=== PATIENT | male | born 1960 | race Caucasian/White ===

== ENCOUNTER 2019-05-16 11:45 | Day surgery (SDC) | payer BC ==
[~2019-05-16 11:45] MED LIST: Lactated Ringers 1,000 ML IV SCH; Sodium Chloride 0.9% 10 ML Syringe FLUSH PRN
[2019-05-16] MEDS ORDERED: Lactated Ringers 1,000 ML IV ONE (11:46)
[2019-05-16] MEDS ORDERED: fentaNYL 100 MCG/2 ML SDV IV ONE ×2 (11:46)
[2019-05-16] MEDS ORDERED: Ketorolac 30 MG/ML SDV IVPUSH ONE (11:46)
[2019-05-16] MEDS ORDERED: Midazolam 1 MG/ML 2 ML SDV IV ONE (11:46)
[2019-05-16] MEDS ORDERED: Propofol 200 MG/20 ML SDV IV ONE (11:46)
[2019-05-16] MEDS ORDERED: Lidocaine 2% 5 ML SDV INJECT ONE (11:46)
[2019-05-16] MEDS ORDERED: Ondansetron 4 MG/2 ML SDV IVPUSH ONE (11:46)
[2019-05-16] MEDS ORDERED: HYDROmorphone 2 MG/ML SDV IV ONE (11:46)
[2019-05-16] MEDS ORDERED: Dexamethasone 4 MG/ML 5 ML MDV IVPUSH ONE (11:46)
[2019-05-16] MEDS ORDERED: ceFAZolin 2 GM in Premix Bag 1 BAG IV ONE (13:00)
[2019-05-16] MEDS ORDERED: Bupivacaine 0.5% 50 ML MDV INJECT ONE (14:42)
[2019-05-16] MEDS ORDERED: ceFAZolin 1 GM Vial ONE (15:01)
--- NOTE | 2019-05-16 15:37 | PCM.OPNOTE ---
- General Post-Op/Procedure Note Date of Surgery/Procedure: 05/16/19 Operative Procedure(s): R IH with mesh Pre Op Diagnosis: R IH Post-Op Diagnosis: Same Anesthesia Technique: General LMA, Local Primary Surgeon: Charly PAEZ in mLs: 5 Complications: None Condition: Good
--- NOTE | 2019-05-16 16:48 | OR ---
DATE OF OPERATION: 05/16/2019 SURGEON: Charly Boyer MD PREOPERATIVE DIAGNOSIS: Right inguinal hernia. POSTOPERATIVE DIAGNOSIS: Right inguinal hernia. PROCEDURE: Right inguinal hernia repair with mesh. ANESTHESIA: General LMA with local. DESCRIPTION OF PROCEDURE: The patient was brought to the operating room, where a time-out was performed. Surgical site had been initialed by myself and the patient. General anesthesia was administered with laryngeal mask airway. A routine hernia incision was made above the inguinal ligament and extended through the subcutaneous tissue. External fascia was identified and opened in line with the external ring. Cord structures were thickened and edematous consistent with his recent incarceration as seen on his CT scan. The hernia was reduced at this time. I did place a Mary drain around the cord structures. I was unable to identify an ilioinguinal nerve. The thickened indirect hernia sac was dissected off the cord structures. This was large and extended down to the upper scrotum. The hernia sac was opened, and no contents were present. This was twisted and suture ligated at its base with 2-0 Vicryl. A routine hernia repair was then performed using a large precut keyhole polypropylene mesh. This was secured to the pubic tubercle with 0 Prolene. A couple more interrupted sutures were used to secure this to Ilan's ligament inferiorly and a transition stitch made medial to the femoral vein to the shelving edge of Poupart's ligament. The edges of the mesh were brought around laterally and secured with 0 Prolene such that the tip of the small finger would snugly fit into the opening. After the inferior edge was completely secured, the superior edge of the mesh was secured to the muscle with interrupted 0 Prolene. The edges of the mesh were trimmed to length and tucked beneath the external fascia. The wound was thoroughly irrigated with Ancef and saline and return was clear and hemostasis assured. The external fascia was closed with running 3-0 Vicryl. The subcutaneous tissue was reapproximated with 3-0 Vicryl and skin closed with tameka. A sterile dressing was applied. The patient tolerated the procedure well. Testicles were in the scrotum following the surgery. Estimated blood loss was 5 mL. He returned to Postanesthesia in stable condition. /[id number] [place]
== END 2019-05-16 17:10 | disposition home or self-care (01) ==
LOC: FB.SDS 11:45 → FB.MS 16:09 → FB.SDS 17:10
PROVIDERS: ATTEND Surgery
DX: K40.90 Unilateral inguinal hernia, without obstruction or gangrene, not specified as recurrent (principal); G47.33 Obstructive sleep apnea (adult) (pediatric); K21.9 Gastro-esophageal reflux disease without esophagitis; Z87.891 Personal history of nicotine dependence; Z79.82 Long term (current) use of aspirin; Z79.1 Long term (current) use of non-steroidal anti-inflammatories (NSAID); Z86.718 Personal history of other venous thrombosis and embolism
CPT/HCPCS: 94150; C1781; J0690; J1100; J1170; J1885; J2001; J2250; J2405; J2704; J3010; J3490; J7120

== ENCOUNTER 2021-02-11 10:25 | Observation (INO) | payer BC ==
--- NOTE | 2021-02-11 10:48 | EDM.PDOC ---
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 He states that he went into his building and placed his left hand under warm water and at that point he began to have burning and tingling in his left hand. He had no feeling of weakness or discoordination in his left hand and he had no headache or vision problems he had no problems speaking. He had no problems walking. He did not have any other symptoms besides the burning and tingling in his left hand. He had had no trauma to the area. He has been eating and drinking normally. He has never had symptoms like this before. He presents to the emergency department via private vehicle from his work and he continues to have no other symptoms besides the burning and the tingling in his left hand. He states that it has been waxing and waning but it has not gone away since 9:20 AM today. No nausea or vomiting. No chest pain. No neck or jaw pain. He does report that the burning and tingling is uncomfortable and he would rate that discomfort as a 5/10. Nothing really seems to make it better. Nothing really seems to make it worse. He has taken no medications. There are no other associated signs or symptoms. There are no other modifying factors. Onset: Today (9:20 AM) Duration: Constant Location: Reports: Upper Extremity, Left (Left hand) Quality: Reports: Burning (And tingling) Severity: Moderate Improves with: Reports: None Worsens with: Reports: None Context: Reports: Other Associated Symptoms: Reports: No Other Symptoms (As above) Treatments HEMSTITCHER: Reports: Other (see below) (Nothing.) - Related Data Allergies Allergy/AdvReac Type Severity Reaction Status Date / Time No Known Allergies Allergy Verified 05/16/19 12:09 Home Meds: Home Meds NK [No Known Home Meds] 02/11/21 [History] Past Medical History Cardiovascular History: Reports: Blood Clots/VTE/DVT, Other (See Below) (Dyslipidemia per the patient. No medications.) Respiratory History: Reports: Sleep Apnea - Past Surgical History HEENT Surgical History: Reports: Oral Surgery GI Surgical History: Reports: Hernia, Inguinal Male Surgical History: Reports: Varicocele Resection Social & Family History - Tobacco Use Tobacco Use Status *Q: Current Every Day Tobacco User Years of Tobacco use: 40 Packs/Tins Daily: 2 - Caffeine Use Caffeine Use: Reports: Coffee, Soda - Alcohol Use Alcohol Use History: Yes Alcohol Use Frequency: Socially (Occasional.) - Living Situation & Occupation Occupation: Employed (Works at [employer]) Review of Systems - Review of Systems Review Of Systems: See Below Constitutional: Denies: Chills, Fever, Weakness Eyes: Denies: Blurred Vision, Vision Change Ears: Denies: Dizziness, Pain Nose: Denies: Congestion, Pain Mouth/Throat: Denies: Bleeding, Throat Swelling, Hoarse Voice Respiratory: Denies: Shortness of Breath, Cough Cardiovascular: Denies: Chest Pain, Lightheadedness GI/Abdominal: Denies: Abdominal Pain, Nausea, Vomiting Genitourinary: Denies: Dysuria, Hematuria Musculoskeletal: Reports: Hand Pain (Left hand with tingling and burning.), Other (Patient is right-hand dominant.). Denies: Neck Pain, Shoulder Pain, Arm Pain, Back Pain Skin: Denies: Diaphoresis, Rash Neurological: Reports: Paresthesia (In left hand.). Denies: Dizziness, Headache, Pre-Existing Deficit, Difficulty Walking Psychiatric: Denies: Depression, Anxiety ED EXAM, GENERAL - Physical Exam Exam: See Below General Appearance: Alert, WD/WN, No Apparent Distress Eye Exam: Bilateral Eye: EOMI, Normal Inspection (Sclerae are anicteric), PERRL Ears: Normal External Exam, Hearing Grossly Normal Ear Exam: Bilateral Ear: Auricle Normal Nose: Normal Inspection, Normal Mucosa, No Blood Throat/Mouth: Normal Inspection, Normal Oropharynx, Normal Voice, No Airway Compromise Head: Atraumatic, Normocephalic Neck: Normal Inspection, Supple, Non-Tender, Full Range of Motion Respiratory/Chest: No Respiratory Distress, No Accessory Muscle Use, Chest Non- Tender, Wheezing (Scattered wheezes that clear with cough.) Cardiovascular: Normal Peripheral Pulses, Regular Rate, Rhythm, No Murmur Peripheral Pulses: 2+: Radial (L), Radial (R), Dorsalis Pedis (L), Dorsalis Pedis (R) GI/Abdominal: Normal Bowel Sounds, Soft, Non-Tender Back Exam: Normal Inspection, Full Range of Motion Extremities: Normal Inspection, Normal Range of Motion, Non-Tender, No Pedal Edema, Normal Capillary Refill Neurological: Alert, Oriented, CN II-XII Intact, Normal Cognition, No Motor/Sensory Deficits, Other (No pronator drift. Fine motor function normal in both hands. Bulking Machine Operator equal in both hands. Cranial nerves II through XII intact.) Skin Exam: Warm, Dry, Intact, Normal Color, No Rash #1 Interpretation EKG Date: 02/11/21 Time: 10:43 Rhythm: NSR Rate (Beats/Min): 57 Hoffman: Normal P-Wave: Present QRS: Normal ST-T: Normal QT: Normal Comparison: NA - No Prior EKG Course - Vital Signs Last Recorded V/S: Last Vital Signs Temp 36.3 C 02/11/21 16:30 Pulse 88 02/11/21 16:30 Resp 16 02/11/21 16:30 BP 116/73 02/11/21 16:30 Pulse Ox 97 02/11/21 16:30 - Orders/Labs/Meds Orders: Active Orders 24 hr Category Date Time Status Sodium Chloride 0.9% [Saline Flush] Med 02/11/21 11:02 Active 10 ml FLUSH ASDIRECTED PRN Peripheral IV Insertion Adult [OM.PC] Routine Oth 02/11/21 11:02 Ordered EKG 12 Lead [EK] Routine Ther 02/11/21 11:02 Ordered Medication Orders Enoxaparin Sodium (Enoxaparin 40 Mg/0.4 Ml Syringe) 40 mg SUBCUT Q24H JITENDRA Last Admin: 02/11/21 17:14 Dose: 40 mg Documented by: SEDLTAS Sodium Chloride (Sodium Chloride 0.9% 10 Ml Syringe) 10 ml FLUSH ASDIRECTED PRN PRN Reason: Keep Vein Open Labs: Laboratory Tests 02/11/21 02/11/21 02/11/21 Range/Units 11:25 11:25 11:25 WBC 8.0 (3.2-10.1) x10-3/uL RBC 4.67 (3.90-5.90) x10(6)uL Hgb 15.1 (12.9-17.7) g/dL Hct 45.6 (38.3-50.1) % MCV 97.6 (80.8-98.7) fL MCH 32.3 (27.0-33.3) pg MCHC 33.1 (28.7-35.3) g/dL RDW 14.2 (12.4-15.0) % Plt Count 199 (117-477) x10(3)uL MPV 8.2 (6.7-11.0) fL Neut % (Auto) 64.5 (40.3-71.8) % Lymph % (Auto) 24.3 (15.8-45.3) % Carolina % (Auto) 8.6 (5.5-15.2) % Eos % (Auto) 1.6 (0.1-6.8) % Baso % (Auto) 1.0 (0.3-3.8) % Neut # (Auto) 5.2 (1.7-6.9) x10-3/uL Lymph # (Auto) 1.9 (0.5-4.5) x10-3/uL Carolina # (Auto) 0.7 (0.0-1.2) x10-3/uL Eos # (Auto) 0.1 (0.0-0.6) x10-3/uL Baso # (Auto) 0.1 (0.0-0.3) x10-3/uL ESR 2 (0-15) mm/hr Sodium 142 (135-145) mmol/L Potassium 3.8 (3.5-5.3) mmol/L Chloride 106 (100-110) mmol/L Carbon Dioxide 27 (21-32) mmol/L BUN 16 (7-18) mg/dL Creatinine 1.0 (0.70-1.30) mg/dL Est Cr Clr Drug Dosing 74.10 mL/min Estimated GFR (MDRD) > 60 (>60) BUN/Creatinine Ratio 16.0 (9-20) Glucose 102 (80-116) mg/dL Calcium 8.8 (8.6-10.2) mg/dL Magnesium 1.9 (1.8-2.5) mg/dL Total Bilirubin 0.6 (0.1-1.3) mg/dL AST 16 (5-25) IU/L ALT 18 (12-36) U/L Alkaline Phosphatase 68 (56-112) IU/L Troponin I 7.1 (4.0-60.3) pg/mL C-Reactive Protein < 0.2 L (0.5-0.9) mg/dL Total Protein 6.8 (6.0-8.0) g/dL Albumin 3.4 (3.2-4.6) g/dL Globulin 3.4 g/dL Albumin/Globulin Ratio 1.0 SARS-CoV-2 RNA (TIKA) (NEGATIVE) 02/11/21 Range/Units 13:10 WBC (3.2-10.1) x10-3/uL RBC (3.90-5.90) x10(6)uL Hgb (12.9-17.7) g/dL Hct (38.3-50.1) % MCV (80.8-98.7) fL MCH (27.0-33.3) pg MCHC (28.7-35.3) g/dL RDW (12.4-15.0) % Plt Count (117-477) x10(3)uL MPV (6.7-11.0) fL Neut % (Auto) (40.3-71.8) % Lymph % (Auto) (15.8-45.3) % Carolina % (Auto) (5.5-15.2) % Eos % (Auto) (0.1-6.8) % Baso % (Auto) (0.3-3.8) % Neut # (Auto) (1.7-6.9) x10-3/uL Lymph # (Auto) (0.5-4.5) x10-3/uL Carolina # (Auto) (0.0-1.2) x10-3/uL Eos # (Auto) (0.0-0.6) x10-3/uL Baso # (Auto) (0.0-0.3) x10-3/uL ESR (0-15) mm/hr Sodium (135-145) mmol/L Potassium (3.5-5.3) mmol/L Chloride (100-110) mmol/L Carbon Dioxide (21-32) mmol/L BUN (7-18) mg/dL Creatinine (0.70-1.30) mg/dL Est Cr Clr Drug Dosing mL/min Estimated GFR (MDRD) (>60) BUN/Creatinine Ratio (9-20) Glucose (80-116) mg/dL Calcium (8.6-10.2) mg/dL Magnesium (1.8-2.5) mg/dL Total Bilirubin (0.1-1.3) mg/dL AST (5-25) IU/L ALT (12-36) U/L Alkaline Phosphatase (56-112) IU/L Troponin I (4.0-60.3) pg/mL C-Reactive Protein (0.5-0.9) mg/dL Total Protein (6.0-8.0) g/dL Albumin (3.2-4.6) g/dL Globulin g/dL Albumin/Globulin Ratio SARS-CoV-2 RNA (TIKA) Negative (NEGATIVE) Meds: Medications Generic Name Dose Route Start Last Admin Trade Name Freq PRN Reason Stop Dose Admin Enoxaparin Sodium 40 mg 02/11/21 17:00 02/11/21 17:14 Enoxaparin 40 Mg/0.4 Ml Syringe SUBCUT 40 mg Q24H JITENDRA Administration Sodium Chloride 10 ml 02/11/21 11:02 Sodium Chloride 0.9% 10 Ml Syringe FLUSH ASDIRECTED PRN Keep Vein Open Discontinued Medications Generic Name Dose Route Start Last Admin Trade Name Freq PRN Reason Stop Dose Admin Iopamidol 100 ml 02/11/21 15:19 02/11/21 15:27 Iopamidol 755 Mg/Ml 100 Ml Bottle IV 02/11/21 15:20 100 ml . DIRECTED ONE Administration - Radiology Interpretation Free Text/Narrative:: Portable chest x-ray shows no acute disease per Dr. Damian. CT scan of the head without contrast shows some microvascular changes that appear to be chronic but no bleeding and no evidence of acute stroke. This was per Dr. Damian and the report was called to me and verbally given by him. - Re-Assessments/Exams Free Text/Narrative Re-Assessment/Exam: 02/11/21 11:45: EKG shows no acute abnormality. The CT scan of the head was negative per the radiologist. The chest x-ray shows some fibrotic changes but nothing acute. I did call and discuss the patient's case with Dr. Smith, stroke neurologist at [facility], and he would recommend the patient be admitted. He feels the patient will need cardiac monitoring. He also feels the patient would need a CTA of his head and neck and an MRI of the brain and he would also need an echocardiogram to be performed. I am awaiting the rest of the patient's laboratory tests and I will discuss this with the nursing supervisor blasting to see if we have been availability and discussed with the hospitalist to see if we can potentially get these tests performed at our institution. 02/11/21 13:05: All of the patient's lab tests are reassuringly normal. The patient is awake and alert. He has no numbness or tingling in his left hand. He has no new neurologic findings and in fact all of his symptoms seem to have resolved. I discussed all of his lab tests and the CT scan and chest x-ray with him. I discussed the possible etiologies of his left hand numbness and the concern for a possible thalamic stroke versus TIA and that the recommendation of the stroke neurologist is that he be admitted to the hospital with the above testing. He would be in agreement with plan for admission. He would also be agreeable to being admitted here. 02/11/21 13:20: I discussed the patient's case with Dr. Torre, hospitalist, and she has agreed to admit the patient. We are awaiting a rapid Covid test but the patient will be transferred to the floor following this and Dr. Torre will assume care of the patient. 02/11/21 13:35: Apparently the patient is an [facility] patient and Dr. Torre. Therefore, I will call and discussed patient's case with the stroke neurologist at a center to make sure that we are doing all the testing that they feel is appropriate. 02/11/21 13:45: I discussed the patient's case with the PA for Dr. Chang, stroke neurologist at [facility], and they also feel that the patient needs a CT of the head and neck, an MRI of the brain without contrast and an echocardiogram performed. They also asked that a lipid panel and a hemoglobin A1c is performed as well. They also feel that admission to our hospital would be appropriate with the caveat that the above testing can be performed. Departure - Departure Time of Disposition: 13:23 Disposition: Refer to Observation Condition: Fair Clinical Impression: TIA (transient ischemic attack) - Discharge Information Sepsis Event Note (ED) - Evaluation Sepsis Screening Result: No Definite Risk - Focused Exam Vital Signs: Vital Signs Temp Pulse Resp BP Pulse Ox 02/11/21 10:25 36.4 C 50 L 20 131/83 99 - My Orders Last 24 Hours: My Active Orders 02/11/21 11:02 Sodium Chloride 0.9% [Saline Flush] 10 ml FLUSH ASDIRECTED PRN Peripheral IV Insertion Adult [OM.PC] Routine EKG 12 Lead [EK] Routine - Assessment/Plan Last 24 Hours: My Active Orders 02/11/21 11:02 Sodium Chloride 0.9% [Saline Flush] 10 ml FLUSH ASDIRECTED PRN Peripheral IV Insertion Adult [OM.PC] Routine EKG 12 Lead [EK] Routine
[2021-02-11] MEDS ORDERED: Sodium Chloride 0.9% 10 ML Syringe FLUSH PRN (11:02)
--- NOTE | 2021-02-11 12:03 | CR ---
CHEST ONE VIEW INDICATION: Left hand pain and tingling. FINDINGS: AP upright portable view of the chest was obtained. No comparison chest x-ray was present. The heart is normal in size and shape. The aorta is calcified minimally in the arch and minimally tortuous. A definite active infiltrate or effusion was not identified with somewhat heavy markings in the lower lung mason likely fibrotic in nature. IMPRESSION: No acute process. Report was called to Dr. Erazo at approximately 1140 hours 02/12/20. [facility]
--- NOTE | 2021-02-11 12:07 | CT ---
CT HEAD WITHOUT CONTRAST INDICATION: Left hand pain and tingling, cold, started at 9:00 a.m. TECHNIQUE: Spiral 3.75 mm axial sections were obtained through the brain without contrast with axial, sagittal and coronal reconstructions 02/11/21 - no comparisons. Total exam DLP was 1348.07 mGy/cm. FINDINGS: No shift of midline structures, ventricular abnormalities or gross abnormal areas of density could be identified. However, there is some subtle patchy decreased density in the parietal white matter, especially on the left raising the question of minimal microvascular disease. This patient also has calcifications in the vertebral and internal carotid arteries. No bleeding site or hematoma was identified. There is some thickening of the ethmoidal air cell linings raising question of minimal allergic type sinusitis or previous sinusitis. Thickening of the lining of the right frontal air cell lining was also noted in part. The mastoid air cells were unremarkable. The orbits appear to be intact. Cranium appears to be intact. IMPRESSION: 1. No definite acute intracranial abnormality. 2. Question minimal microvascular disease in a patient with cerebrovascular disease by calcifications noted in the vertebral and internal carotid arteries. 3. Minimal changes in the sinuses may represent allergic or previous sinusitis. Report was called to Dr. Erazo at 1140 hours 02/12/20. [facility]
[2021-02-11] MEDS ORDERED: Iopamidol 755 Mg/ML 100 ML Bottle IV ONE (15:19)
--- NOTE | 2021-02-11 16:26 | CT ---
COMPUTERIZED TOMOGRAPHY ANGIOGRAPHY OF THE HEAD INDICATION: Left arm weakness, numbness, tingling, question stroke. TECHNIQUE: Spiral 1.25 mm axial sections were obtained through the neck and head with 100 mL Isovue 370 at 4 mL/second with sagittal and coronal reconstructions 02/11/[address] head without contrast of the same date. Total exam DLP was 1348.07 mGy/cm. FINDINGS: There are calcified plaques noted at the arch of the aorta, proximal brachiocephalic vessels, left vertebral artery as it enters the cranium. Calcifications are also noted at the carotid bifurcation extending into the branches on the right with no significant appearing stenosis and at the intracranial internal carotid arteries again without a significant degree of stenosis. The intracranial arterial system appears to be fairly symmetrical and patent with no aneurysmal dilatation. The nome of [place] is intact. No gross contrast enhancing pathology was noted in the brain. IMPRESSION: 1. There are areas of atherosclerotic change in the cerebral vasculature and precranial arteries. However, no significant narrowing of those vessels could be identified - no occluded vessels were seen. 2. Incidentally noted are hypertrophic degenerative changes and disc disease in the cervical spine at multiple levels. Report was called to Dr. Erazo at 1606 hours 02/11/21. [facility]
[2021-02-11] MEDS ORDERED: Enoxaparin 40 MG/0.4 ML Syringe SUBCUT SCH (17:00)
--- NOTE | 2021-02-11 17:04 | PCM.HP.2 ---
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 He spoke to his boss and he was sent to ER for evaluation. His symptoms resolved after getting to ER. He denies any slurred speech, facial droop, no lower extremity weakness. States he has trouble with his balance but that's not new. He does not take any medications. He saw Dr Maki last year, supposed to be on a statin but not taking. NO abdominal pain, nausea, vomiting, diaphoresis, chest pain, shortness of breath, diarrhea during episode this morning. No dysuria, frequency, hematuria. No rash or injury. - Related Data Allergies/Adverse Reactions: Allergies Allergy/AdvReac Type Severity Reaction Status Date / Time No Known Allergies Allergy Verified 05/16/19 12:09 Home Medications: Home Meds NK [No Known Home Meds] 02/11/21 [History] Past Medical History Cardiovascular History: Reports: Blood Clots/VTE/DVT Respiratory History: Reports: Sleep Apnea, Other (See Below) Other Respiratory History: TOBACCO USER 40 YEARS Gastrointestinal History: Reports: None Genitourinary History: Reports: None MEDICAL TRANSPORT SPECIALIST History: Reports: None Musculoskeletal History: Reports: None Neurological History: Reports: None Psychiatric History: Reports: None Endocrine/Metabolic History: Reports: None Hematologic History: Reports: None Immunologic History: Reports: None Oncologic (Cancer) History: Reports: None Dermatologic History: Reports: None - Past Surgical History Head Surgeries/Procedures: Reports: None HEENT Surgical History: Reports: Oral Surgery Cardiovascular Surgical History: Reports: Varicose Male Surgical History: Reports: None Musculoskeletal Surgical History: Reports: None Social & Family History - Family History Family Medical History: No Pertinent Family History - Tobacco Use Tobacco Use Status *Q: Current Every Day Tobacco User Years of Tobacco use: 40 Packs/Tins Daily: 1 - Caffeine Use Caffeine Use: Reports: Coffee, Soda - Recreational Drug Use Recreational Drug Use: No H&P Review of Systems - Review of Systems: Review Of Systems: Comprehensive ROS is negative, except as noted in HPI. Exam - Exam Exam: See Below - Vital Signs Vital Signs: Last Vital Signs Temp 97.3 F 02/11/21 16:30 Pulse 88 02/11/21 16:30 Resp 16 02/11/21 16:30 BP 116/73 02/11/21 16:30 Pulse Ox 97 02/11/21 16:30 Weight: 170 lb 12.8 oz - Exam General: Alert, Oriented, Cooperative HEENT: PERRLA, EACs Clear, EOMI, Hearing Intact, Mucosa Moist & [place], Glasses Neck: Supple, Trachea Midline. No: Carotid Bruit Lungs: Clear to Auscultation, Normal Respiratory Effort Cardiovascular: Regular Rate, Regular Rhythm GI/Abdominal Exam: Normal Bowel Sounds, Soft, Non-Tender, No Distention (Male) Exam: Deferred Rectal (Males) Exam: Deferred Extremities: No Pedal Edema, Normal Capillary Refill Peripheral Pulses: 2+: Radial (L), Radial (R), Posterior Tibial (L), Posterior Tibial (R), Dorsalis Pedis (L), Dorsalis Pedis (R) Skin: Warm, Dry, Intact Neurological: Cranial Nerves Intact, Strength Equal Bilateral, Normal Speech, Normal Tone, Sensation Intact - Patient Data Lab Results Last 24 hrs: Laboratory Results - last 24 hr 02/11/21 02/11/21 02/11/21 Range/Units 11:25 11:25 11:25 WBC 8.0 (3.2-10.1) x10-3/uL RBC 4.67 (3.90-5.90) x10(6)uL Hgb 15.1 (12.9-17.7) g/dL Hct 45.6 (38.3-50.1) % MCV 97.6 (80.8-98.7) fL MCH 32.3 (27.0-33.3) pg MCHC 33.1 (28.7-35.3) g/dL RDW 14.2 (12.4-15.0) % Plt Count 199 (117-477) x10(3)uL MPV 8.2 (6.7-11.0) fL Neut % (Auto) 64.5 (40.3-71.8) % Lymph % (Auto) 24.3 (15.8-45.3) % Hancock % (Auto) 8.6 (5.5-15.2) % Eos % (Auto) 1.6 (0.1-6.8) % Baso % (Auto) 1.0 (0.3-3.8) % Neut # (Auto) 5.2 (1.7-6.9) x10-3/uL Lymph # (Auto) 1.9 (0.5-4.5) x10-3/uL Hancock # (Auto) 0.7 (0.0-1.2) x10-3/uL Eos # (Auto) 0.1 (0.0-0.6) x10-3/uL Baso # (Auto) 0.1 (0.0-0.3) x10-3/uL ESR 2 (0-15) mm/hr Sodium 142 (135-145) mmol/L Potassium 3.8 (3.5-5.3) mmol/L Chloride 106 (100-110) mmol/L Carbon Dioxide 27 (21-32) mmol/L BUN 16 (7-18) mg/dL Creatinine 1.0 (0.70-1.30) mg/dL Est Cr Clr Drug Dosing 74.10 mL/min Estimated GFR (MDRD) > 60 (>60) BUN/Creatinine Ratio 16.0 (9-20) Glucose 102 (80-116) mg/dL Calcium 8.8 (8.6-10.2) mg/dL Magnesium 1.9 (1.8-2.5) mg/dL Total Bilirubin 0.6 (0.1-1.3) mg/dL AST 16 (5-25) IU/L ALT 18 (12-36) U/L Alkaline Phosphatase 68 (56-112) IU/L Troponin I 7.1 (4.0-60.3) pg/mL C-Reactive Protein < 0.2 L (0.5-0.9) mg/dL Total Protein 6.8 (6.0-8.0) g/dL Albumin 3.4 (3.2-4.6) g/dL Globulin 3.4 g/dL Albumin/Globulin Ratio 1.0 SARS-CoV-2 RNA (TIKA) (NEGATIVE) 02/11/21 Range/Units 13:10 WBC (3.2-10.1) x10-3/uL RBC (3.90-5.90) x10(6)uL Hgb (12.9-17.7) g/dL Hct (38.3-50.1) % MCV (80.8-98.7) fL MCH (27.0-33.3) pg MCHC (28.7-35.3) g/dL RDW (12.4-15.0) % Plt Count (117-477) x10(3)uL MPV (6.7-11.0) fL Neut % (Auto) (40.3-71.8) % Lymph % (Auto) (15.8-45.3) % Hancock % (Auto) (5.5-15.2) % Eos % (Auto) (0.1-6.8) % Baso % (Auto) (0.3-3.8) % Neut # (Auto) (1.7-6.9) x10-3/uL Lymph # (Auto) (0.5-4.5) x10-3/uL Hancock # (Auto) (0.0-1.2) x10-3/uL Eos # (Auto) (0.0-0.6) x10-3/uL Baso # (Auto) (0.0-0.3) x10-3/uL ESR (0-15) mm/hr Sodium (135-145) mmol/L Potassium (3.5-5.3) mmol/L Chloride (100-110) mmol/L Carbon Dioxide (21-32) mmol/L BUN (7-18) mg/dL Creatinine (0.70-1.30) mg/dL Est Cr Clr Drug Dosing mL/min Estimated GFR (MDRD) (>60) BUN/Creatinine Ratio (9-20) Glucose (80-116) mg/dL Calcium (8.6-10.2) mg/dL Magnesium (1.8-2.5) mg/dL Total Bilirubin (0.1-1.3) mg/dL AST (5-25) IU/L ALT (12-36) U/L Alkaline Phosphatase (56-112) IU/L Troponin I (4.0-60.3) pg/mL C-Reactive Protein (0.5-0.9) mg/dL Total Protein (6.0-8.0) g/dL Albumin (3.2-4.6) g/dL Globulin g/dL Albumin/Globulin Ratio SARS-CoV-2 RNA (TIKA) Negative (NEGATIVE) Result Diagrams: 02/11/21 11:25 02/11/21 11:25 Sepsis Event Note - Evaluation Sepsis Screening Result: No Definite Risk - Focused Exam Vital Signs: Vital Signs Temp Temp Pulse Resp BP Pulse Ox Pulse Ox 02/11/21 16:30 97.3 F 88 16 116/73 97 97 02/11/21 16:14 97.3 F 88 16 116/73 97 02/11/21 10:25 97.5 F 50 L 20 131/83 99 *Q Meaningful Use (ADM) - VTE Risk Assess *Q Each Risk Factor Represents 1 Point: None Total Score 1 Point Risk Factors: 0 Each Risk Factor Represents 2 Points: Age 60 - 74 Years Total Score 2 Point Risk Factors: 2 Each Risk Factor Represents 3 Points: None Total Score 3 Point Risk Factors: 0 Each Risk Factor Represents 5 Points: None Total Score 5 Point Risk Factors: 0 Venous Thromboembolism Risk Factor Score *Q: 2 - Problem List (1) Left hand weakness SNOMED Code(s): 94684700314595724 ICD Code: R29.898 - OTH SYMPTOMS AND SIGNS INVOLVING THE MUSCULOSKELETAL SYSTEM Status: Acute Current Visit: Yes (2) TIA (transient ischemic attack) SNOMED Code(s): 104254734 ICD Code: G45.9 - TRANSIENT CEREBRAL ISCHEMIC ATTACK, UNSPECIFIED Status: Acute Current Visit: Yes Problem List Initiated/Reviewed/Updated: Yes Orders Last 24hrs: Active Orders 24 hr Category Date Time Status Admission Status [Patient Status] [ADT] Routine ADT 02/11/21 13:23 Active Cardiac Monitoring [RC] .As Directed Care 02/11/21 13:23 Active Oxygen Therapy [RC] PRN Care 02/11/21 16:30 Active Up ad Carmela [RC] ASDIRECTED Care 02/11/21 16:30 Active VTE/DVT Education [RC] Per Unit Routine Care 02/11/21 16:30 Active Vital Signs [RC] Q4H Care 02/11/21 16:30 Active Heart Healthy Diet [DIET] Diet 02/11/21 Dinner Active Ang Neck [CT] Stat Exams 02/11/21 14:19 Taken Brain wo Cont [MR] Stat Exams 02/11/21 14:19 Taken Echo Comp wo Cont [US] Routine Exams 02/12/21 08:00 Ordered BASIC METABOLIC PANEL,BMP [CHEM] Routine Lab 02/12/21 06:00 Ordered LIPID PANEL [CHEM] Routine Lab 02/12/21 06:00 Ordered Enoxaparin [Lovenox] Med 02/11/21 17:00 Active 40 mg SUBCUT Q24H Sodium Chloride 0.9% [Saline Flush] Med 02/11/21 11:02 Active 10 ml FLUSH ASDIRECTED PRN Peripheral IV Insertion Adult [OM.PC] Routine Oth 02/11/21 11:02 Ordered Resuscitation Status Routine Resus Stat 02/11/21 16:30 Ordered EKG 12 Lead [EK] Routine Ther 02/11/21 11:02 Ordered Medication Orders Enoxaparin Sodium (Enoxaparin 40 Mg/0.4 Ml Syringe) 40 mg SUBCUT Q24H JITENDRA Sodium Chloride (Sodium Chloride 0.9% 10 Ml Syringe) 10 ml FLUSH ASDIRECTED PRN PRN Reason: Keep Vein Open Assessment/Plan Comment:: 1. Admit for observation for suspected Transient Ischemic attack. 2. TIA: CT head was negative. Dr Erazo, ER spoke with Neurology at [facility], they advised CTA head & neck, MRI brain without contrast, Echo, lipid panel and HgbA1c, Aspirin 325 mg daily on discharge with statin. CTA head & neck showed some plaque in right carotid, but head negative for acute process. MRI results pending. Echo for tomorrow. Lipid panel & HgbA1c in am. Telemetry. 3. Diet: Regular. 4. Activity: as tolerated. 5. DVT prophylaxis: Lovenox 40 mg sq daily. 6. CODE STATUS: FULL. 7. Discharge planning: depending on MRI/echo results, if no further episodes and studies negative, would discharge tomorrow. If CVA present, then would discuss with [facility] Neurology again. - Mortality Measure Prognosis:: Good
[2021-02-12 08:58] LABS: HEMOGLOBIN A1C 5.5 % (<5.7)
[2021-02-12] MEDS ORDERED: Aspirin 325 MG Tab.EC PO SCH (09:00)
[2021-02-12] MEDS ORDERED: Rosuvastatin 10 MG Tab PO SCH (09:00)
[2021-02-12 09:09] VITALS: BP 105/76; PULSE 67
--- NOTE | 2021-02-12 18:07 | PCM.DCSUM1 ---
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 He spoke to his boss and he was sent to ER for evaluation. His symptoms resolved after getting to ER. He denies any slurred speech, facial droop, no lower extremity weakness. States he has trouble with his balance but that's not new. He does not take any medications. He saw Dr Maki last year, supposed to be on a statin but not taking. NO abdominal pain, nausea, vomiting, diaphoresis, chest pain, shortness of breath, diarrhea during episode this morning. No dysuria, frequency, hematuria. No rash or injury. Diagnosis: Stroke: No - Discharge Data Discharge Date: 02/12/21 Discharge Disposition: Home, Self-Care 01 Condition: Stable - Referral to Home Health Primary Care Physician: Russell Maki MD - Discharge Diagnosis/Problem(s) (1) Left hand weakness SNOMED Code(s): 32790181133922511 ICD Code: R29.898 - OTH SYMPTOMS AND SIGNS INVOLVING THE MUSCULOSKELETAL SYSTEM Status: Acute (2) TIA (transient ischemic attack) SNOMED Code(s): 939897086 ICD Code: G45.9 - TRANSIENT CEREBRAL ISCHEMIC ATTACK, UNSPECIFIED Status: Acute (3) Hyperlipidemia SNOMED Code(s): 90564749 ICD Code: E78.5 - HYPERLIPIDEMIA, UNSPECIFIED Status: Acute - Patient Summary/Data Hospital Course: Admitted for observation for TIA vs CVA for monitoring. CT head was negative for ischemic or hemorrhagic stroke. [facility] neurosurgery requested CTA head and nec k and MRI brain without contrast and echo. CTA head showed no acute process. CTA neck showed plaque on right but no significant stenosis. MRI brain report pending. Echo today showed no vegetations, no PFO(patent foramen ovale). Lipid panel showed TC 222, LDL 143, TG 76, HDL 47. HgbA1c 5.5%. Covid negative. Started on Aspirin 325 mg daily and Crestor 10 mg daily. Discharge to home in stable condition. Follow up with Dr Maki on Feb 19 at 10 am. - Patient Instructions Diet: Heart Healthy Diet Activity: As Tolerated Driving: Do Not Drive Showering/Bathing: August Shower Notify Provider of: Fever, Increased Pain, Swelling and Redness, Nausea and/or Vomiting - Discharge Plan *PRESCRIPTION DRUG MONITORING PROGRAM REVIEWED*: Not Applicable *COPY OF PRESCRIPTION DRUG MONITORING REPORT IN PATIENT NIKOLAI: Not Applicable Prescriptions/Med Rec: Rosuvastatin [Crestor] 10 mg PO DAILY #30 tablet Home Medications: Home Meds Aspirin [Ecotrin EC] 325 mg PO DAILY tab.ec 02/12/21 [Rx] Rosuvastatin [Crestor] 10 mg PO DAILY #30 tablet 02/12/21 [Rx] Oxygen Therapy Mode: Room Air Patient Handouts: Transient Ischemic Attack, [id number], High Cholesterol Forms: ED Department Discharge Referrals: Russell Maki MD [Primary Care Provider] - 02/19/21 10:00 am - Discharge Summary/Plan Comment DC Time >30 min.: No Total # of Minutes for Discharge Time: 10 min. - General Info Date of Service: 02/12/21 Subjective Update: He has not had any further symptoms of left hand numbness, tingling, cold sensation or weakness since admission. Functional Status: Reports: Tolerating Diet, Ambulating, Urinating. Denies: New Symptoms - Patient Data Vitals - Most Recent: Last Vital Signs Temp 98.2 F 02/12/21 08:00 Pulse 67 02/12/21 08:00 Resp 16 02/12/21 08:00 BP 105/76 02/12/21 08:00 Pulse Ox 97 02/12/21 08:00 Weight - Most Recent: 170 lb 12.8 oz Lab Results - Last 24 hrs: Laboratory Results - last 24 hr 02/12/21 02/12/21 Range/Units 06:14 06:14 Sodium 142 (135-145) mmol/L Potassium 4.3 (3.5-5.3) mmol/L Chloride 107 (100-110) mmol/L Carbon Dioxide 28 (21-32) mmol/L BUN 16 (7-18) mg/dL Creatinine 1.0 (0.70-1.30) mg/dL Est Cr Clr Drug Dosing 74.10 mL/min Estimated GFR (MDRD) > 60 (>60) BUN/Creatinine Ratio 16.0 (9-20) Glucose 101 (80-116) mg/dL Hemoglobin A1c 5.5 (<5.7) % Calcium 8.7 (8.6-10.2) mg/dL Triglycerides 76 (15-150) mg/dL Cholesterol 222 H (50-200) mg/dL LDL Cholesterol Direct 143 H (60-130) mg/dL HDL Cholesterol 47 (40-75) mg/dL Cholesterol/HDL Ratio 4.7 (0-5) Med Orders - Current: Current Medications Discontinued Medications Aspirin (Aspirin 325 Mg Tab.Ec) 325 mg PO DAILY [facility] Last Admin: 02/12/21 09:02 Dose: 325 mg Documented by: Enoxaparin Sodium (Enoxaparin 40 Mg/0.4 Ml Syringe) 40 mg SUBCUT Q24H [facility] Last Admin: 02/11/21 17:14 Dose: 40 mg Documented by: Iopamidol (Iopamidol 755 Mg/Ml 100 Ml Bottle) 100 ml IV . DIRECTED ONE Stop: 02/11/21 15:20 Last Admin: 02/11/21 15:27 Dose: 100 ml Documented by: Rosuvastatin Calcium (Rosuvastatin 10 Mg Tab) 10 mg PO DAILY [facility] Last Admin: 02/12/21 09:02 Dose: 10 mg Documented by: Sodium Chloride (Sodium Chloride 0.9% 10 Ml Syringe) 10 ml FLUSH ASDIRECTED PRN PRN Reason: Keep Vein Open - Exam General: Reports: Alert, Oriented, Cooperative, No Acute Distress Neck: Denies: Carotid Bruit Lungs: Reports: Clear to Auscultation Cardiovascular: Reports: Regular Rate, Regular Rhythm GI/Abdominal Exam: Normal Bowel Sounds, Soft, Non-Tender, No Distention (Male) Exam: Deferred Rectal (Males) Exam: Deferred Extremities: No Pedal Edema, Normal Capillary Refill Neurological: Reports: No New Focal Deficit
== END 2021-02-12 11:40 | disposition home or self-care (01) ==
LOC: FB.ED 10:25 → FB.MS 13:23
PROVIDERS: ADMIT Family Medicine; ATTEND Family Medicine
DX: R53.1 Weakness (principal); R20.0 Anesthesia of skin; R20.2 Paresthesia of skin; F17.210 Nicotine dependence, cigarettes, uncomplicated; E78.5 Hyperlipidemia, unspecified; Z98.890 Other specified postprocedural states; Z20.822 Contact with and (suspected) exposure to COVID-19
CPT/HCPCS: 36415; 70450; 70496; 70498; 70551; 71045; 80048; 80053; 80061; 83036; 83735; 84484; 85025; 85651; 86140; 93005; 93306; 96372; 99285-25; A9270-GY; G0378; J1650; Q9967; U0002

== ENCOUNTER 2024-09-15 12:45 | Emergency (ER) | payer BC ==
[2024-09-15] MEDS ORDERED: Lidocaine 1% 5 ML VIAL INFILT ONE (12:46)
[2024-09-15] MEDS: Diphtheria,Pertussis(Acell),Tetanus Vaccine 0.5 ML Syringe IM ONE (13:10)
== END 2024-09-15 13:25 | disposition home or self-care (01) ==
LOC: FB.ED 12:45
DX: S60.351A Superficial foreign body of right thumb, initial encounter (principal); Z23 Encounter for immunization; Z79.82 Long term (current) use of aspirin; Z79.899 Other long term (current) drug therapy; W45.8XXA Other foreign body or object entering through skin, initial encounter
CPT/HCPCS: 90471; 90715; 99283; J2003